=== PATIENT | female | born 1990 | race Caucasian/White ===

== ENCOUNTER 2019-07-13 20:05 | Emergency (ER) | payer BC ==
[~2019-07-13] VITALS: Ht 160 cm; Wt 63.5 kg
[2019-07-13 20:07] VITALS: BP 122/88
--- NOTE | 2019-07-13 20:16 | NUR ---
PT AMUBLATED TO BED #6.
--- NOTE | 2019-07-13 20:25 | NUR ---
28 Y/O FEMALE C/O HEADACHE SINCE NOON THAT HAS GOTTEN WORSE AND FEELS THROBBING AND PAIN 10/10. PT STATES SHE TOOK HYDROCODONE 1 HR AGO AND THEN HAD AN EPISODE OF EMESIS . PT DENIES ANY TRAUMA. + N/V; DENIES DIARRHEA; SKIN IS PINK/WARM/DRY; AAOX4 WITH EVEN AND STEADY GAIT; HR EVEN AND REGULAR; PT DENIES ANY FEVER, CP, SOB, OR COUGH AT THIS TIME; VSS; PATIENT POSITIONED FOR COMFORT; HOB ELEVATED; BEDRAILS UP X1; BED DOWN AND LOCKED. MEDICAL HX: ARTEMIO MCKEON
[2019-07-13] MEDS ORDERED: NACL 0.9% 1,000 ML IV ONE (20:57)
[2019-07-13] MEDS ORDERED: diphenhydrAMINE 50 MG/ML VIAL IVP ONE (21:00)
[2019-07-13] MEDS ORDERED: METOCLOPRAMIDE 10 MG/2 ML INJ VIAL IVP ONE (21:00)
[2019-07-13] MEDS ORDERED: KETOROLAC 30 MG/ML VIAL IVP ONE (21:00)
--- NOTE | 2019-07-13 21:39 | NUR ---
PT TRANSFER TO CT VIA W/C.
--- NOTE | 2019-07-13 21:44 | NUR ---
PT RETURNED BACK FROM CT VIA W/C.
[2019-07-13 22:55] VITALS: BP 118/72
--- NOTE | 2019-07-13 22:55 | NUR ---
Patient discharged with v/s stable. Written and verbal after care instructions given and explained. Patient alert, oriented and verbalized understanding of instructions. Ambulatory with steady gait. All questions addressed prior to discharge. ID band removed. Patient advised to follow up with PMD. Rx of REGLAN, AND FIORICET given. Patient educated on indication of medication including possible reaction and side effects. Opportunity to ask questions provided and answered.
== END 2019-07-13 22:55 | disposition home or self-care (01) ==
LOC: MED 20:05
DX: R51 Headache (principal); R11.2 Nausea with vomiting, unspecified; Z98.890 Other specified postprocedural states
CPT/HCPCS: 70450; 81025; 96361; 96374; 96375; 99284; J1200; J1885; J2765; J7030; 99283